=== PATIENT | female | born 1980 | race Caucasian/White ===

== ENCOUNTER 2017-05-27 13:46 | Emergency (ER) | payer OTHER ==
[~2017-05-27] VITALS: Ht 162.6 cm; Wt 98.4 kg
[~2017-05-27 13:46] MED LIST: HYDROCODONE-AP1 EAC6 PO; PENICILLIN VK500 M1 PO; ZOFRAN ODT4 MG PO
[2017-05-27] MEDS ORDERED: MOBIC15 MG PO (14:05)
[2017-05-27] MEDS ORDERED: PENICILLIN V P500 MG PO (14:05)
== END 2017-05-27 14:20 | disposition home or self-care (01) ==
LOC: ER 13:46
DX: K05.30 Chronic periodontitis, unspecified (principal); E11.9 Type 2 diabetes mellitus without complications; Z88.8 Allergy status to other drugs, medicaments and biological substances; Z88.5 Allergy status to narcotic agent